=== PATIENT | female | born 1965 | race African-American/Black ===

== ENCOUNTER 2022-07-11 08:06 | Day surgery (SDC) | payer OTHER ==
[2022-07-07 12:17] VITALS: BMI 23.7
[2022-07-11] MEDS ORDERED: GLYCOPYRROLATE 0.2 MG/1 ML VIAL ONE (09:17)
[2022-07-11] MEDS ORDERED: PHENYLEPHRINE HCL 10 MG/1 ML SINGLE DOSE VIAL ONE (09:17)
[2022-07-11 09:38] VITALS: RESP 18; TEMP 97
[2022-07-11 09:54] VITALS: BP 101/68; PULSE 78
== END 2022-07-11 10:12 | disposition home or self-care (01) ==
LOC: FASU-ENDO 08:06
PROVIDERS: ATTEND Internal Medicine Gastroenterology
PROC: 0DJD8ZZ Inspection of Lower Intestinal Tract, Via Natural or Artificial Opening Endoscopic (ICD-10-PCS; principal; 2022-07-11 09:15)
DX: Z12.11 Encounter for screening for malignant neoplasm of colon (principal); K57.30 Diverticulosis of large intestine without perforation or abscess without bleeding; K64.0 First degree hemorrhoids; Z80.0 Family history of malignant neoplasm of digestive organs